=== PATIENT | female | born 1955 | race Two or more races ===

== ENCOUNTER 2018-05-18 07:53 | Outpatient (CLI) | payer OTHER ==
[~2018-05-18 07:53] MED LIST: CLONAZEPAM1 MG PO; COZAAR100 MG PO; DOCUSATE SODIU100 MG PO; LIPITOR40 MG PO; PERCOCET 5-3251 EACH PO; PRIALT IT; SYNTHROID125 MCG PO; [UNRECOGNIZED DRUG - OTHER] PO
== END 2018-05-18 08:00 | disposition home or self-care (01) ==
LOC: RAD 07:53
DX: M51.36 Other intervertebral disc degeneration, lumbar region (principal)

== ENCOUNTER 2020-04-12 13:26 | Outpatient (CLI) | payer OTHER | END 2020-04-12 13:32 | disposition home or self-care (01) | LOC: NUCLEAR 13:26 | PROVIDERS: ATTEND Internal Medicine | DX: I10 Essential (primary) hypertension (principal); M54.5 Low back pain; E03.8 Other specified hypothyroidism; M50.00 Cervical disc disorder with myelopathy, unspecified cervical region; E55.9 Vitamin D deficiency, unspecified; E78.89 Other lipoprotein metabolism disorders; Z13.820 Encounter for screening for osteoporosis; Z12.31 Encounter for screening mammogram for malignant neoplasm of breast; Z12.11 Encounter for screening for malignant neoplasm of colon; M81.0 Age-related osteoporosis without current pathological fracture ==

== ENCOUNTER 2020-04-17 13:57 | Outpatient (CLI) | payer OTHER | END 2020-04-17 14:00 | disposition home or self-care (01) | LOC: RAD 13:57 | PROVIDERS: ATTEND Orthopaedic Surgery | DX: R07.89 Other chest pain (principal) ==

== ENCOUNTER 2021-01-21 11:45 | Inpatient (IN) | payer OTHER ==
[~2021-01-21] VITALS: Ht 165.1 cm; Wt 63.5 kg
[2021-01-21] MEDS ORDERED: METFORMIN HCL500 M3 PO (15:57)
[2021-01-28] MEDS ORDERED: MEDROLPACK PO (13:36)
[2021-01-28] MEDS ORDERED: NEURONTIN800 MG PO (13:36)
[2021-01-28] MEDS ORDERED: DIAZEPAM5 MG PO (13:36)
[2021-01-28] MEDS ORDERED: COLACE100 MG PO (13:36)
[2021-01-28] MEDS ORDERED: BACTRIM DS TAB1 EACH PO (13:36)
[2021-01-28] MEDS ORDERED: PERCOCET 5-3251 EACH PO (13:36)
== END 2021-01-29 16:37 | disposition home or self-care (01) | DRG 455 ==
LOC: O/R 01-28 06:50 → SURH 01-28 11:45 → PED 01-29 02:49
PROVIDERS: ADMIT Orthopaedic Surgery Orthopaedic Surgery of the Spine; ATTEND Orthopaedic Surgery Orthopaedic Surgery of the Spine
PROC: XRGB0F3 Fusion of Lumbar Vertebral Joint using Radiolucent Porous Interbody Fusion Device, Open Approach, New Technology Group 3 (ICD-10-PCS; 2021-01-28)
PROC: 0SG00J1 Fusion of Lumbar Vertebral Joint with Synthetic Substitute, Posterior Approach, Posterior Column, Open Approach (ICD-10-PCS; 2021-01-28)
PROC: 07DR3ZZ Extraction of Iliac Bone Marrow, Percutaneous Approach (ICD-10-PCS; 2021-01-28)
PROC: 0ST20ZZ Resection of Lumbar Vertebral Disc, Open Approach (ICD-10-PCS; principal; 2021-01-28 16:45)
DX: M43.16 Spondylolisthesis, lumbar region (principal); M48.062 Spinal stenosis, lumbar region with neurogenic claudication; E11.9 Type 2 diabetes mellitus without complications; I10 Essential (primary) hypertension; Z79.84 Long term (current) use of oral hypoglycemic drugs

== ENCOUNTER 2021-05-19 09:38 | Outpatient (CLI) | payer OTHER ==
[~2021-05-19 09:38] MED LIST changes: +BACTRIM DS TAB1 EACH PO; +COLACE100 MG PO; +DIAZEPAM5 MG PO; +MEDROLPACK PO; +METFORMIN HCL500 M3 PO; +NEURONTIN800 MG PO
== END 2021-05-19 09:45 | disposition home or self-care (01) ==
LOC: RAD 09:38
PROVIDERS: ATTEND Orthopaedic Surgery
DX: M25.561 Pain in right knee (principal); M25.562 Pain in left knee

== ENCOUNTER 2021-07-08 11:17 | Outpatient (CLI) | payer OTHER | END 2021-07-08 11:25 | disposition home or self-care (01) | LOC: RAD 11:17 | DX: M54.59 Other low back pain (principal); I70.0 Atherosclerosis of aorta; Z98.1 Arthrodesis status ==

== ENCOUNTER 2023-01-25 08:23 | Outpatient (CLI) | payer OTHER | END 2023-01-25 08:29 | disposition home or self-care (01) | LOC: RAD 08:23 | PROVIDERS: ATTEND Orthopaedic Surgery Orthopaedic Surgery of the Spine | DX: Z98.1 Arthrodesis status (principal) ==